=== PATIENT | female | born 1950 | race Caucasian/White ===

== ENCOUNTER 2019-12-29 15:09 | Emergency (ER) | payer MEDICARE ==
[2019-12-29 15:30] VITALS: TEMP 98.1
[2019-12-29] MEDS ORDERED: MORPHINE SULFATE 4 MG/ML SYRINGE IM STA (16:00)
--- NOTE | 2019-12-29 16:48 | CT ---
EXAMINATION TYPE: CT brain glenna wo con DATE OF EXAM: 12/29/2019 COMPARISON: None HISTORY: fall CT DLP: 1200 mGycm Automated exposure control for dose reduction was used. Multiple axial sections were obtained of the brain without contrast. Multiple axial sections were obt ained from the skull base to T1 vertebra without contrast. Findings There is cerebral cortical atrophy. There is no mass effect nor midline shift. There is no sign of in tracranial hemorrhage. The calvarium is intact. There is large left frontal scalp hematoma. This martita ures up to 1 cm in thickness. Skull base is intact. There is normal aeration of the temporal bones. Cervical vertebra have fairly n ormal spacing and alignment. Facet joints are intact. There is no significant arthritic disease. Ther e is small calcified posterior disc herniation at C4-5 C5-6. There is developmentally adequate spinal canal. I see no sign of cervical spinal stenosis. There is small posterior disc bulge at C3-4. IMPRESSION: Cerebral atrophy. No acute intracranial abnormality. Left frontal scalp hematoma. Mild posterior multilevel cervical disc bulging and herniation without significant spinal stenosis. N o fracture seen.
--- NOTE | 2019-12-29 16:51 | CT ---
EXAMINATION TYPE: CT facial bones wo con DATE OF EXAM: 12/29/2019 COMPARISON: None HISTORY: fall CT DLP: 1200 mGycm Automated exposure control for dose reduction was used. Multiple axial sections were obtained from the bottom of the mandible to the top of the frontal sinus es without contrast. FINDINGS: Mandibular ring is intact. Temporomandibular joints appear intact. Nasal bone appears intact. Zygomat ic arches appear normal. Maxilla is intact. There is no evidence of a blowout fracture. The orbital m argins are intact. There is no sign of retro-orbital mass. There is large left frontal scalp hematoma . This measures up to 10 mm in thickness. There is also left side periorbital soft tissue swelling an d hematoma. The frontal bone appears intact. Paranasal sinuses appear normally aerated. Sphenoid sinu se is hypoplastic. IMPRESSION: Large left frontal and periorbital soft tissue swelling and hematoma. No fracture seen.
--- NOTE | 2019-12-29 16:55 | CT ---
EXAMINATION TYPE: CT pelvis wo con DATE OF EXAM: 12/29/2019 COMPARISON: None HISTORY: fall, pain LT hip CT DLP: 462.7 mGycm Automated exposure control for dose reduction was used. Multiple axial sections were obtained from the iliac crests to the subtrochanteric femurs without con trast. FINDINGS: Sacroiliac joints are intact. The acetabula appear intact. Pelvic ring is intact. There is no sign of a pelvic fracture. The proximal femurs and hip joints appear intact. I see no evidence of hip fractu re. There is atherosclerotic vascular calcification. The coccyx appears intact. Bladder distends smoothly. There is no free fluid in the pelvis. There are sigmoid diverticula withou t evidence for diverticulitis. There is no sign of a pelvic mass. There is subcutaneous bruising late ral to the proximal left femur. IMPRESSION: No fracture seen. Minor degenerative spur formation at the hip joints. Subcutaneous bruising lateral to the proximal left femur. Sigmoid diverticulosis without diverticulitis.
--- NOTE | 2019-12-29 16:58 | XR ---
EXAMINATION TYPE: XR hand complete LT DATE OF EXAM: 12/29/2019 COMPARISON: NONE HISTORY: Pain after falling TECHNIQUE: 3 views FINDINGS: Metacarpals appear intact. I see no fracture nor dislocation. Joint spaces are fairly param l. There are no erosions. IMPRESSION: Negative left hand exam. No fracture seen.
--- NOTE | 2019-12-29 17:00 | XR ---
EXAMINATION TYPE: XR wrist complete LT DATE OF EXAM: 12/29/2019 COMPARISON: NONE HISTORY: Pain TECHNIQUE: 4 views FINDINGS: Carpal bones appear intact. I see no fracture nor dislocation. There is minor spurring at t he first carpometacarpal joint. IMPRESSION: No acute abnormality of the left wrist.
--- NOTE | 2019-12-29 17:02 | XR ---
EXAMINATION TYPE: XR Hip Complete LT DATE OF EXAM: 12/29/2019 COMPARISON: NONE HISTORY: Hip pain. Fall. TECHNIQUE: 2 views FINDINGS: I see no fracture nor dislocation. Proximal femur is intact. Hip joint space is fairly norm al. IMPRESSION: Negative left hip exam. No fracture seen.
--- NOTE | 2019-12-29 17:30 | ED ---
Fall HPI - General Chief Complaint: Fall Stated Complaint: Fall- Head Injury Time Seen by Provider: 12/29/19 15:30 Source: patient Mode of arrival: ambulatory - History of Present Illness Initial Comments: The patient is a 69-year-old female past history of asthma, hypertension, hyperlipidemia and stent placement right lower extremity presents emergency department after she had a syncopal episode at home. Reports that she was walking in the backyard when she fell forward and hit her head off the concrete. States that her head bounced twice off the concrete. She sustained a loss of consciousness for several minutes. Her found her and assisted her to her feet. She was able to walk into the house. Injury happened around 10:30 AM. She sustained a large abrasion over her left eyelid. Patient now has periorbital swelling with decreased vision out of her left eye. Patient also reports to left fifth digit pain and left knee pain. The patient is on Plavix a nd cilostazol. She denies having any chest pain or shortness of breath prior to the incident. Denies a mechanical fall but believes she went to the ground from passing out. Denies any abdominal pain. No back or neck pain. No other alleviating, precipitating or modifying factors - Related Data Allergies Allergy/AdvReac Type Severity Reaction Status Date / Time Sulfa (Sulfonamide Allergy Swelling Verified 12/29/19 15:30 Antibiotics) Review of Systems ROS Statement: Those systems with pertinent positive or pertinent negative responses have been documented in the HPI. ROS Other: All systems not noted in ROS Statement are negative. Past Medical History Past Medical History: Asthma, Hyperlipidemia, Hypertension History of Any Multi-Drug Resistant Organisms: None Reported Past Surgical History: Heart Catheterization With Stent Additional Past Surgical History / Comment(s): gastric sleeve, arm and stomach plastic surgery Past Psychological History: No Psychological Hx Reported Smoking Status: Former smoker Past Alcohol Use History: None Reported Past Drug Use History: None Reported General Exam Limitations: no limitations General appearance: alert, in no apparent distress Head exam: Present: normocephalic, other (hematoma and ecchymosis over left eye - 3.5 x 3.5 cm) Eye exam: Present: PERRL, EOMI, periorbital swelling, other (significant periorbital edema left eye. Eye is opened manually and EOMI. No hyphema. No corneal abrasion. No signs of entrapment. Globe is round. Pupils reactive bilaterally. No palpable step off around the eye) ENT exam: Present: normal exam, mucous membranes moist, other (no nasal bone tenderness. No septal hematoma) Neck exam: Present: normal inspection. Absent: tenderness, meningismus, lymphadenopathy Respiratory exam: Present: normal lung sounds bilaterally. Absent: respiratory distress, wheezes, rales, rhonchi, stridor Cardiovascular Exam: Present: regular rate, normal rhythm, normal heart sounds. Absent: systolic murmur, diastolic murmur, rubs, gallop, clicks GI/Abdominal exam: Present: soft, normal bowel sounds. Absent: distended, tenderness, guarding, rebound, rigid Extremities exam: Present: normal inspection, full ROM, tenderness (tendernes DIP left 5th digit. No ecchymosis intact ROM. Tenderness to palpation left lateral thigh with palpable hematoma. Patient able to flex at hip, extend/flex knee without pain. No obvious deformity. 2+ pulses all 4 extremities. Compartments are soft. Intact distal sensation. ), normal capillary refill. Absent: pedal edema, joint swelling, calf tenderness Back exam: Present: normal inspection Neurological exam: Present: alert, oriented X3, CN II-XII intact Psychiatric exam: Present: normal affect, normal mood Course Vital Signs 12/29/19 12/29/19 12/29/19 15:27 17:18 18:53 Temperature 98.1 F Pulse Rate 94 74 71 Respiratory 18 18 16 Rate Blood Pressure 109/70 107/61 105/71 O2 Sat by Pulse 95 94 L 96 Oximetry Medical Decision Making - Medical Decision Making Upon arrival the patient is placed into room 5. A thorough history and physical exam was performed. I am able to open the patient's left eye. No signs of ocular entrapment. No hyphema. Patient has intact visual pate. She is sent for CT of her head, neck, facial bones and orbits. Patient also has a CT of her pelvis performed because of her left hip and pelvic pain. Multiple x-rays were performed. Upon review of the results, CT the patient's head demonstrates cerebral atrophy with no acute intracranial abnormality. Left frontal scalp hematoma. Mild posterior multilevel cervical disc bulging herniation without significant spinal stenosis. No fracture seen. Face CT demonstrates large left frontal and periorbital soft tissue swelling and hematoma. No fracture seen. CT pelvis demonstrates no fracture with minor degenerative spur formation at the hip joints. Subcutaneous bruising lateral to the proximal left femur. Hand x- ray demonstrates no acute fractures. Patient has no pain over the scaphoid region. X-ray of the wrist demonstrates no acute abnormality. Hip x-ray demonstrates no fracture. I did discuss results with the patient. She is able to get up and ambulate. Patient's eye is reevaluated and swelling has decreased. Patient is able to open her eye on her own. Extraocular muscles continue to be intact. At this time patient will be discharged home. She is offered something for pain control however patient refused. Patient needs to follow-up with her primary care physician and rn charge within 2-4 days. Return to the emergency room for any new or worsening symptoms. Patient was in agreement treatment plan she was discharged home in stable condition - Lab Data Result diagrams: 12/29/19 17:18 12/29/19 17:18 Lab Results 12/29/19 12/29/19 12/29/19 Range/Units 17:18 17:18 17:18 WBC 11.3 H (3.8-10.6) k/uL RBC 4.24 (3.80-5.40) m/uL Hgb 12.8 (11.4-16.0) gm/dL Hct 39.6 (34.0-46.0) % MCV 93.4 (80.0-100.0) fL MCH 30.2 (25.0-35.0) pg MCHC 32.3 (31.0-37.0) g/dL RDW 13.5 (11.5-15.5) % Plt Count 319 (150-450) k/uL Neutrophils % 83 % Lymphocytes % 10 % Monocytes % 4 % Eosinophils % 1 % Basophils % 0 % Neutrophils # 9.4 H (1.3-7.7) k/uL Lymphocytes # 1.1 (1.0-4.8) k/uL Monocytes # 0.5 (0-1.0) k/uL Eosinophils # 0.1 (0-0.7) k/uL Basophils # 0.0 (0-0.2) k/uL PT 10.2 (9.0-12.0) sec INR 1.0 (<1.2) APTT 20.7 L (22.0-30.0) sec Sodium 134 L (137-145) mmol/L Potassium 4.6 (3.5-5.1) mmol/L Chloride 96 L (98-107) mmol/L Carbon Dioxide 30 (22-30) mmol/L Anion Gap 8 mmol/L BUN 26 H (7-17) mg/dL Creatinine 0.87 (0.52-1.04) mg/dL Est GFR (CKD-EPI)AfAm 80 (>60 ml/min/1.73 sqM) Est GFR (CKD-EPI)NonAf 69 (>60 ml/min/1.73 sqM) Glucose 326 H (74-99) mg/dL Calcium 9.9 (8.4-10.2) mg/dL Total Bilirubin 0.8 (0.2-1.3) mg/dL AST 27 (14-36) U/L ALT 17 (4-34) U/L Alkaline Phosphatase 88 (38-126) U/L Creatine Kinase 50 (30-135) U/L Troponin I (0.000-0.034) ng/mL Total Protein 7.2 (6.3-8.2) g/dL Albumin 4.2 (3.5-5.0) g/dL 12/29/19 Range/Units 17:18 WBC (3.8-10.6) k/uL RBC (3.80-5.40) m/uL Hgb (11.4-16.0) gm/dL Hct (34.0-46.0) % MCV (80.0-100.0) fL MCH (25.0-35.0) pg MCHC (31.0-37.0) g/dL RDW (11.5-15.5) % Plt Count (150-450) k/uL Neutrophils % % Lymphocytes % % Monocytes % % Eosinophils % % Basophils % % Neutrophils # (1.3-7.7) k/uL Lymphocytes # (1.0-4.8) k/uL Monocytes # (0-1.0) k/uL Eosinophils # (0-0.7) k/uL Basophils # (0-0.2) k/uL PT (9.0-12.0) sec INR (<1.2) APTT (22.0-30.0) sec Sodium (137-145) mmol/L Potassium (3.5-5.1) mmol/L Chloride (98-107) mmol/L Carbon Dioxide (22-30) mmol/L Anion Gap mmol/L BUN (7-17) mg/dL Creatinine (0.52-1.04) mg/dL Est GFR (CKD-EPI)AfAm (>60 ml/min/1.73 sqM) Est GFR (CKD-EPI)NonAf (>60 ml/min/1.73 sqM) Glucose (74-99) mg/dL Calcium (8.4-10.2) mg/dL Total Bilirubin (0.2-1.3) mg/dL AST (14-36) U/L ALT (4-34) U/L Alkaline Phosphatase (38-126) U/L Creatine Kinase (30-135) U/L Troponin I <0.012 (0.000-0.034) ng/mL Total Protein (6.3-8.2) g/dL Albumin (3.5-5.0) g/dL - EKG Data EKG Comments: EKG demonstrates a normal sinus rhythm with a ventricular rate of 70. KS interval 166. QRS 136. QTC of 492. Right bundle branch block present. No acute ST segment elevations. Disposition Clinical Impression: Syncope, Fall, Blunt head trauma, Scalp hematoma Disposition: HOME SELF-CARE Condition: Stable Instructions (If sedation given, give patient instructions): Syncope (ED), Concussion (ED) Additional Instructions: You need to follow up with your primary care doctor in 2-4 days. They need to recheck her sugars as they were high here in the emergency room. I also recommend he follow-up with your eye doctor. Return to the emergency room for any new or worsening symptoms Is patient prescribed a controlled substance at d/c from ED?: No Referrals: Daryl Briceno MD [Primary Care Provider] - 1-2 days Time of Disposition: 18:31
[2019-12-29 17:31] LABS: Basophils % (A) 0 %; Eosinophils # (A) 0.1 k/uL (0-0.7); Eosinophils % (A) 1 %; HCT 39.6 % (34.0-46.0); HGB 12.8 gm/dL (11.4-16.0); Lymphocytes # (A) 1.1 k/uL (1.0-4.8); Lymphocytes % (A) 10 %; MCH 30.2 pg (25.0-35.0); MCHC 32.3 g/dL (31.0-37.0); MCV 93.4 fL (80.0-100.0); Mean Platelet Volume 7.1; Monocytes # (A) 0.5 k/uL (0-1.0); Monocytes % (A) 4 %; Neutrophils # (A) 9.4 k/uL (1.3-7.7); Neutrophils % (A) 83 %; Platelet Count 319 k/uL (150-450); RBC 4.24 m/uL (3.80-5.40); RDW 13.5 % (11.5-15.5); WBC 11.3 k/uL (3.8-10.6)
[2019-12-29 17:42] LABS: Albumin 4.2 g/dL (3.5-5.0); Calcium 9.9 mg/dL (8.4-10.2); Potassium 4.6 mmol/L (3.5-5.1); Total Bilirubin 0.8 mg/dL (0.2-1.3); Total Protein 7.2 g/dL (6.3-8.2)
[2019-12-29 17:46] LABS: Prothrombin Time 10.2 sec (9.0-12.0)
[2019-12-29 17:47] LABS: Partial Thromboplastin Time 20.7 sec (22.0-30.0)
[2019-12-29 18:55] VITALS: BP 105/71; PULSE 71; RESP 16
== END 2019-12-29 18:54 | disposition home or self-care (01) ==
LOC: EC 15:09
DX: S00.03XA Contusion of scalp, initial encounter (principal); S70.12XA Contusion of left thigh, initial encounter; S06.899A Other specified intracranial injury with loss of consciousness of unspecified duration, initial encounter; G31.9 Degenerative disease of nervous system, unspecified; M50.221 Other cervical disc displacement at C4-C5 level; M79.89 Other specified soft tissue disorders; R10.2 Pelvic and perineal pain; Z79.02 Long term (current) use of antithrombotics/antiplatelets; Z87.891 Personal history of nicotine dependence; Z88.2 Allergy status to sulfonamides; Z95.5 Presence of coronary angioplasty implant and graft; W18.30XA Fall on same level, unspecified, initial encounter; Y93.01 Activity, walking, marching and hiking; Y92.096 Garden or yard of other non-institutional residence as the place of occurrence of the external cause
CPT/HCPCS: 96372; 99284; 36415; 93005; 80053; 82550; 84484; 85025; 85610; 85730; 73502; 73110; 73130; 72192; 72125; 70486; 70450; J2270

== ENCOUNTER 2021-05-04 15:43 | Emergency (ER) | payer MEDICARE ==
[2021-05-04 17:14] VITALS: RESP 20
--- NOTE | 2021-05-04 18:39 | XR ---
EXAMINATION TYPE: XR chest 2V DATE OF EXAM: 05/04/2021 COMPARISON: NONE HISTORY: Weakness. Cough TECHNIQUE: 2 views FINDINGS: There is some coarsening of interstitial markings. Thoracic aorta is atheromatous. Heart si ze is normal. Bony thorax is intact. There is no pleural effusion. IMPRESSION: Interstitial patchy pneumonia. Subsegmental atelectasis at the lung bases.
[2021-05-04] MEDS ORDERED: ACETAMINOPHEN TAB 325 MG TAB PO STA (19:20)
[2021-05-04] MEDS ORDERED: IBUPROFEN 600 MG TAB PO STA (19:20)
[2021-05-04] MEDS ORDERED: DEXAMETHASONE SOD PHOSPHATE 10 MG/ML 1 ML VIAL IVP STA (19:27)
[2021-05-04] MEDS ORDERED: SODIUM CHLORIDE 0.9% 50 ML IVPB ONE (19:45)
[2021-05-04] MEDS ORDERED: BAMLANIVIMAB (EUA) 700 MG, ETESEVIMAB (EUA) 1,400 MG in SODIUM CHLORIDE 0.9% 50 ML IVPB ONE (19:45)
--- NOTE | 2021-05-04 20:31 | ED ---
URI HPI - General Chief Complaint: Upper Respiratory Infection Stated Complaint: Cough Time Seen by Provider: 05/04/21 18:57 Source: patient, RN notes reviewed Mode of arrival: ambulatory Limitations: no limitations - History of Present Illness Initial Comments: Patient is a 70-year-old female that presents to the emergency Department complaining of cough, shortness of breath and fever. Patient wants to be tested for Covid. She notes that she is positive she wants to undergo monoclonal antibody infusion. Patient was otherwise well-appearing. She denied any chest pain headache nausea vomiting diarrhea constipation fever fatigue chills. - Related Data Previous Rx's Medication Instructions Recorded predniSONE 50 mg PO DAILY #5 tab 05/04/21 Allergies Allergy/AdvReac Type Severity Reaction Status Date / Time Sulfa (Sulfonamide Allergy Swelling Verified 05/04/21 17:14 Antibiotics) Review of Systems ROS Statement: Those systems with pertinent positive or pertinent negative responses have been documented in the HPI. ROS Other: All systems not noted in ROS Statement are negative. Past Medical History Past Medical History: Asthma, Hyperlipidemia, Hypertension History of Any Multi-Drug Resistant Organisms: None Reported Past Surgical History: Heart Catheterization With Stent Additional Past Surgical History / Comment(s): gastric sleeve, arm and stomach plastic surgery Past Psychological History: No Psychological Hx Reported Smoking Status: Former smoker Past Alcohol Use History: None Reported Past Drug Use History: None Reported General Exam Limitations: no limitations General appearance: alert, in no apparent distress, obese Head exam: Present: atraumatic, normocephalic, normal inspection Eye exam: Present: normal appearance, PERRL, EOMI. Absent: scleral icterus, conjunctival injection, periorbital swelling ENT exam: Present: normal exam, mucous membranes moist Neck exam: Present: normal inspection Respiratory exam: Present: normal lung sounds bilaterally. Absent: respiratory distress, wheezes, rales, rhonchi, stridor Cardiovascular Exam: Present: regular rate, normal rhythm, normal heart sounds. Absent: systolic murmur, diastolic murmur, rubs, gallop, clicks Extremities exam: Present: normal inspection, full ROM, normal capillary refill. Absent: tenderness, pedal edema, joint swelling, calf tenderness Neurological exam: Present: alert, oriented X3 Psychiatric exam: Present: normal affect, normal mood Skin exam: Present: warm, dry, intact, normal color. Absent: rash Course Vital Signs 05/04/21 17:11 Temperature 102.7 F H Pulse Rate 111 H Respiratory 20 Rate Blood Pressure 132/78 O2 Sat by Pulse 93 L Oximetry Medical Decision Making - Medical Decision Making 70-year-old female with Covid like symptoms for the past several days. Covid test, 650 mg of Tylenol, 600 mg of Motrin, 10 mg of Decadron ordered. Covid test positive. Patient does meet criteria for monoclonal antibodies and does wish to undergo infusion. Chest x-ray ordered. Patient is agreeable with discharge home after infusion. Case discussed with Dr. King - Lab Data Lab Results 05/04/21 Range/Units 17:16 Coronavirus (PCR) Detected A (Not Detectd) - Radiology Data Radiology results: report reviewed, image reviewed Chest x-ray: Interstitial patchy pneumonia. Subsegmental atelectasis at the lung bases. Disposition Clinical Impression: COVID Disposition: HOME SELF-CARE Condition: Stable Instructions (If sedation given, give patient instructions): Coronavirus Disease 2019 (COVID-19) Additional Instructions: Please return to the Emergency Department if symptoms worsen or any other concerns. Prednisone sent to pharmacy. Is patient prescribed a controlled substance at d/c from ED?: No Referrals: Daryl Briceno MD [Primary Care Provider] - 1-2 days Time of Disposition: 20:31
[2021-05-04 22:06] VITALS: BP 128/80; PULSE 82; TEMP 98.5
== END 2021-05-04 22:06 | disposition home or self-care (01) ==
LOC: EC 15:43
DX: U07.1 COVID-19 (principal); I10 Essential (primary) hypertension; E78.5 Hyperlipidemia, unspecified; J45.909 Unspecified asthma, uncomplicated; Z88.2 Allergy status to sulfonamides; Z87.891 Personal history of nicotine dependence
CPT/HCPCS: 99285; 96365; 96375; 87635; 71046; J1100; J3490

== ENCOUNTER 2022-04-11 12:59 | Emergency (ER) | payer MEDICARE ==
[2022-04-11] MEDS ORDERED: HYDROmorphone 0.5 MG/0.5 ML SYRINGE IVP STA (13:35)
--- NOTE | 2022-04-11 13:41 | ED ---
Fall HPI - General Chief Complaint: Fall Stated Complaint: fall, shoulder injury Time Seen by Provider: 04/11/22 13:02 Source: patient, EMS, RN notes reviewed Mode of arrival: EMS - History of Present Illness Initial Comments: Patient is a 71 year old female presenting to the ER vis EMS after falling in her driveway. She was taking out the trash and fell landing on her back. She reports right shoulder pain rating it a 10/10. She admits to numbness in her right arm and fingers. She states she hit her head but denies losing consciousness. She also is having pain in her buttock where she landed. The patient is currently on Plavix. - Related Data Previous Rx's Medication Instructions Recorded predniSONE 50 mg PO DAILY #5 tab 05/04/21 HYDROcodone/APAP 5-325MG [[facility] 5] 1 each PO Q6HR PRN #12 tab 04/11/22 Allergies Allergy/AdvReac Type Severity Reaction Status Date / Time Sulfa (Sulfonamide Allergy Swelling Verified 04/11/22 13:07 Antibiotics) Review of Systems ROS Statement: Those systems with pertinent positive or pertinent negative responses have been documented in the HPI. ROS Other: All systems not noted in ROS Statement are negative. Past Medical History Past Medical History: Asthma, Hyperlipidemia, Hypertension History of Any Multi-Drug Resistant Organisms: None Reported Past Surgical History: Heart Catheterization With Stent Additional Past Surgical History / Comment(s): gastric sleeve, arm and stomach plastic surgery Past Psychological History: No Psychological Hx Reported Smoking Status: Former smoker Past Alcohol Use History: None Reported Past Drug Use History: None Reported General Exam Limitations: no limitations Course Vital Signs 04/11/22 04/11/22 04/11/22 13:00 13:09 13:12 Temperature 98.4 F 98.4 F Pulse Rate 71 66 Respiratory 22 20 Rate Blood Pressure 125/76 131/75 O2 Sat by Pulse 82 L 95 96 Oximetry 04/11/22 04/11/22 13:17 13:23 Temperature Pulse Rate 65 Respiratory 18 Rate Blood Pressure 145/71 O2 Sat by Pulse 97 96 Oximetry Medical Decision Making - Medical Decision Making X-ray shows displaced proximal humerus fracture. I discussed the case with on- call orthopedics recommends patient be placed in a sling, pain control follow-up in office. There is no emergent surgical intervention needed. CT of the brain and C-spine did not reveal any acute findings. Patient will be discharged in stable condition with close follow-up. Disposition Clinical Impression: Fall, Closed fracture of right proximal humerus Disposition: HOME SELF-CARE Condition: Stable Instructions (If sedation given, give patient instructions): Proximal Humerus Fracture (ED) Additional Instructions: Please return to the Emergency Department if symptoms worsen or any other concerns. Prescriptions: HYDROcodone/APAP 5-325MG [[facility] 5] 1 each PO Q6HR PRN #12 tab PRN Reason: Pain Is patient prescribed a controlled substance at d/c from ED?: Yes When asked, does pt state using other controlled substances?: No If prescribed controlled substance>3 days was MAPS reviewed?: Prescribed <3 Days If opioid is for acute pain is fill amount 7 days or less?: Yes If Rx opioid, was Start Talking consent form obtained?: Yes Referrals: Daryl Briceno MD [Primary Care Provider] - 1-2 days Mark Bowen MD [STAFF PHYSICIAN] - 1-2 days Time of Disposition: 15:07
--- NOTE | 2022-04-11 15:17 | XR ---
EXAMINATION TYPE: XR shoulder complete RT DATE OF EXAM: 04/11/2022 COMPARISON: NONE HISTORY: Pain TECHNIQUE: Three views are submitted. FINDINGS: There is a displaced right humeral neck fracture. Diffuse osteopenia. Remaining osseous structures in tact. IMPRESSION: 1. Significantly displaced right humeral neck fracture.
--- NOTE | 2022-04-11 15:34 | CT ---
EXAMINATION TYPE: CT brain cspine wo con DATE OF EXAM: 04/11/2022 COMPARISON: Prior trauma CT December 29, 2019 HISTORY: Fall injury with headache and neck pain CT DLP: 2039.3 mGycm. Automated Exposure Control for Dose Reduction was Utilized. TECHNIQUE: CT scan of the head and cervical spine are performed without contrast. FINDINGS: There is no acute intracranial hemorrhage or midline shift identified. Mild to moderate v entricular and sulcal prominence is redemonstrated. Increased sulcal prominence over the bilateral f rontal lobes redemonstrated similar to prior. Luque-white matter differentiation fairly well maintaine d. The calvarium is intact. Persistent anterior metopic suture redemonstrated. The globes are intact and the visualized sinuses are clear. Cervical spine is visualized in its entirety from C1 through upper thoracic levels and demonstrates s atisfactory alignment without evidence of acute fracture or dislocation. Prevertebral soft tissue ap pears within normal limits. The C1-C2 articulation is within normal limits on the coronal images. Ve rtebral body heights and disc space heights are maintained. Spinal canal is preserved. Review of axia l images shows thyroid gland to appear within normal limits. Lung apices show emphysematous change wi thout pneumothorax. Moderate calcified plaque bilateral carotid bulb level is redemonstrated. IMPRESSION: 1. There is no acute fracture or dislocation evident in the cervical spine. 2. No acute intracranial hemorrhage or midline shift is seen. No significant change from prior CT.
[2022-04-11 16:02] VITALS: BP 116/73; PULSE 67; RESP 20; TEMP 97.8
== END 2022-04-11 16:03 | disposition home or self-care (01) ==
LOC: EC 12:59
DX: S42.301A Unspecified fracture of shaft of humerus, right arm, initial encounter for closed fracture (principal); J45.909 Unspecified asthma, uncomplicated; E78.5 Hyperlipidemia, unspecified; I10 Essential (primary) hypertension; Z88.2 Allergy status to sulfonamides; Z79.52 Long term (current) use of systemic steroids; Z87.891 Personal history of nicotine dependence; W19.XXXA Unspecified fall, initial encounter
CPT/HCPCS: 99284; 96374; 73030; 72125; 70450; J1170

== ENCOUNTER 2023-09-02 17:31 | Emergency (ER) | payer MEDICARE ==
[2023-09-02 17:37] LABS: Glucose,Whole Blood 394 mg/dL (70-110)
--- NOTE | 2023-09-02 17:38 | ED ---
General Adult HPI - General Stated complaint: High Sugars Time Seen by Provider: 09/02/23 17:37 - History of Present Illness Initial comments: 73-year-old female presenting to the ED with a chief complaint of confusion. Her has been more tired than usual and while at home noted high blood sugar in the 400s. States patient has been more confused than usual as well today. reports that he has had difficulties getting her attention. Spoke to the patient's daughter at bedside. She reports that patient may be starting to have some dementia and normally has some problems with confusion however when her sugar was high earlier states that the patient was not responding to questioning. Did not notice any facial droop or problems with weakness at this time. She states right now she is currently back to baseline. - Related Data Previous Rx's Medication Instructions Recorded predniSONE 50 mg PO DAILY #5 tab 05/04/21 HYDROcodone/APAP 5-325MG [[place] 5] 1 each PO Q6HR PRN #12 tab 04/11/22 Allergies Allergy/AdvReac Type Severity Reaction Status Date / Time Sulfa (Sulfonamide Allergy Swelling Verified 04/11/22 13:07 Antibiotics) Review of Systems ROS Statement: Those systems with pertinent positive or pertinent negative responses have been documented in the HPI. ROS Other: All systems not noted in ROS Statement are negative. Past Medical History Past Medical History: Asthma, Hyperlipidemia, Hypertension History of Any Multi-Drug Resistant Organisms: None Reported Past Surgical History: Heart Catheterization With Stent Additional Past Surgical History / Comment(s): gastric sleeve, arm and stomach plastic surgery Past Psychological History: No Psychological Hx Reported Smoking Status: Former smoker Past Alcohol Use History: None Reported Past Drug Use History: None Reported General Exam - General Exam Comments Initial Comments: Visual Physical Exam Vital signs reviewed General: Well-appearing Head: Normocephalic, atraumatic Eyes: PERRLA, EOMI ENT: Airway patent Chest: Nonlabored breathing Skin: No visual rash, normal skin tone Neuro: Alert. Difficulty responding to commands. Pupils equal round reactive to light. Does not follow commands to assess extraocular motions. Symmetric smile, tongue midline, uvula midline, shrug shoulders with no difficulty, no pronator drift. Musculoskeletal: No gross abnormalities General appearance: alert, in no apparent distress Eye exam: Present: PERRL, EOMI ENT exam: Present: mucous membranes moist Neck exam: Present: normal inspection Respiratory exam: Present: normal lung sounds bilaterally Cardiovascular Exam: Present: regular rate GI/Abdominal exam: Present: soft, normal bowel sounds. Absent: distended, tenderness, guarding, rebound, rigid Neurological exam: Present: alert, CN II-XII intact (Intact [id number], yo l-to-harvey, rapid alternating hand movements.) Skin exam: Present: warm, dry Course Vital Signs 09/02/23 17:36 Temperature 98.4 F Pulse Rate 67 Respiratory 16 Rate Blood Pressure 193/74 O2 Sat by Pulse 93 L Oximetry Medical Decision Making - Medical Decision Making Quicknote portion performed. Signed Alfonso Whitaker PA-C Was pt. sent in by a medical professional or institution ([facility], [employer], urgent care, hospital, or prison...) When possible be specific @ -No Did you speak to anyone other than the patient for history (EMS, parent, family, police, friend...)? What history was obtained from this source @ -Spoke to both the patient's and her daughter for history. For further details please see HPI. Did you review nursing and triage notes (agree or disagree)? Why? @ -I reviewed and agree with nursing and triage notes Were old charts reviewed (outside hosp., previous admission, EMS record, old EKG, old radiological studies, urgent care reports/EKG's, prison records)? Report findings @ -No old charts were reviewed Differential Diagnosis (chest pain, altered mental status, abdominal pain women, abdominal pain men, vaginal bleeding, weakness, fever, dyspnea, syncope, headache, dizziness, GI bleed, back pain, seizure, CVA, palpatations, mental health, musculoskeletal)? @ -Differential Altered Mental Status: Hypoglycemia, DKA, hypercapnia, ETOH, overdose, CO poisoning, trauma, myxedema coma, HTN encephalopathy, infection, encephalitis, psychosis, intercranial hemorrhage, hepatic encephalopathy, meningitis, CVA, this is not meant to be an all-inclusive list EKG interpreted by me (3pts min.). @ -EKG interpreted by me which shows a sinus bradycardia with first-degree AV block with a CA interval of 240 ms and a right bundle branch block with a rate of 55 bpm. QRS 154, QT/QTc 468/456. This appears similar to prior. X-rays interpreted by me (1pt min.). @ -None done CT interpreted by me (1pt min.). @ -CT brain and CTA head and neck interpreted by me which revealed no evidence of acute finding. U/S interpreted by me (1pt. min.). @ -None done What testing was considered but not performed or refused? (CT, X-rays, U/S, labs)? Why? @ -None What meds were considered but not given or refused? Why? @ -None Did you discuss the management of the patient with other professionals (professionals i.e. , PA, [employer], lab, RT, psych nurse, social media senior associate, commercial photographer, teacher, forest fire management officer, family service caseworker)? Give summary @ -No Was smoking cessation discussed for >3mins.? @ -No Was critical care preformed (if so, how long)? @ -No Were there social determinants of health that impacted care today? How? (Homelessness, low income, unemployed, alcoholism, drug addiction, transportation, low edu. Level, literacy, decrease access to med. care, shelter, rehab)? @ -No Was there de-escalation of care discussed even if they declined (Discuss DNR or withdrawal of care, Hospice)? DNR status @ -No What co-morbidities impacted this encounter? (DM, HTN, Smoking, COPD, CAD, Cancer, CVA, ARF, Chemo, Hep., AIDS, mental health diagnosis, sleep apnea, morbid obesity)? @ -None Was patient admitted / discharged? Hospital course, mention meds given and route, prescriptions, significant lab abnormalities, going to OR and other pertinent info. @ -Discharge 73-year-old female presenting to the ED with episode of confusion. Per family presumptive diagnosis of dementia however no formal diagnosis. States today she was more confused than usual and was taking longer to respond prompting presentation to the ED for further evaluation. At this time did not notice any facial paralysis or any problems with weakness. States that the patient was following commands. At this time daughter states that she is back to her normal self. Laboratory studies reviewed. CBC largely unremarkable. Is significant for an elevated blood sugar at 394 which she was provided insulin for. Lactic acid elevated 2.1. Acetone negative. CT brain and CT head and neck revealed no evidence of acute process. At this time patient is back to baseline and neurologic exam showed no focal deficits. Discharged home in stable condition advised follow-up with PCP. Discussed strict return precautions with patient's daughter who verbalized agreement. Undiagnosed new problem with uncertain prognosis? @ -No Drug Therapy requiring intensive monitoring for toxicity (Heparin, Nitro, Insulin, Cardizem)? @ -No Were any procedures done? @ -No Diagnosis/symptom? @ -Hyperglycemia, altered mental status now resolved Acute, or Chronic, or Acute on Chronic? @ -Acute Uncomplicated (without systemic symptoms) or Complicated (systemic symptoms)? @ -Uncomplicated Side effects of treatment? @ -No Exacerbation, Progression, or Severe Exacerbation? @ -No Poses a threat to life or bodily function? How? (Chest pain, USA, ID, pneumonia, PE, COPD, DKA, ARF, appy, cholecystitis, CVA, Diverticulitis, Homicidal, Suicidal, threat to staff... and all critical care pts) @ -No - Lab Data Result diagrams: 09/02/23 17:38 09/02/23 17:38 Lab Results 09/02/23 09/02/23 09/02/23 Range/Units 17:35 17:38 17:38 WBC 11.0 H (3.8-10.6) k/uL RBC 4.68 (3.80-5.40) m/uL Hgb 14.4 (11.4-16.0) gm/dL Hct 46.7 H (34.0-46.0) % MCV 99.6 (80.0-100.0) fL MCH 30.8 (25.0-35.0) pg MCHC 30.9 L (31.0-37.0) g/dL RDW 13.9 (11.5-15.5) % Plt Count 368 (150-450) k/uL MPV 7.3 Neutrophils % 72 % Lymphocytes % 19 % Monocytes % 5 % Eosinophils % 3 % Basophils % 1 % Neutrophils # 8.0 H (1.3-7.7) k/uL Lymphocytes # 2.1 (1.0-4.8) k/uL Monocytes # 0.5 (0-1.0) k/uL Eosinophils # 0.3 (0-0.7) k/uL Basophils # 0.1 (0-0.2) k/uL Hypochromasia Slight PT 10.8 (10.0-12.5) sec INR 1.0 (<1.2) APTT 21.7 L (22.0-30.0) sec Sodium (137-145) mmol/L Potassium (3.5-5.1) mmol/L Chloride (98-107) mmol/L Carbon Dioxide (22-30) mmol/L Anion Gap mmol/L BUN (7-17) mg/dL Creatinine (0.52-1.04) mg/dL Est GFR (CKD-EPI)AfAm (>60 ml/min/1.73 sqM) Est GFR (CKD-EPI)NonAf (>60 ml/min/1.73 sqM) Glucose (74-99) mg/dL POC Glucose (mg/dL) 394 H (70-110) mg/dL POC Glu [employer] ID Manuel Webb Lactic Ac Sepsis Rflx Plasma Lactic Acid Ko (0.7-2.0) mmol/L Calcium (8.4-10.2) mg/dL Total Bilirubin (0.2-1.3) mg/dL AST (14-36) U/L ALT (4-34) U/L Alkaline Phosphatase (38-126) U/L Troponin I (0.000-0.034) ng/mL Total Protein (6.3-8.2) g/dL Albumin (3.5-5.0) g/dL Acetone, Qual (Negative) 09/02/23 09/02/23 09/02/23 Range/Units 17:38 17:38 17:38 WBC (3.8-10.6) k/uL RBC (3.80-5.40) m/uL Hgb (11.4-16.0) gm/dL Hct (34.0-46.0) % MCV (80.0-100.0) fL MCH (25.0-35.0) pg MCHC (31.0-37.0) g/dL RDW (11.5-15.5) % Plt Count (150-450) k/uL MPV Neutrophils % % Lymphocytes % % Monocytes % % Eosinophils % % Basophils % % Neutrophils # (1.3-7.7) k/uL Lymphocytes # (1.0-4.8) k/uL Monocytes # (0-1.0) k/uL Eosinophils # (0-0.7) k/uL Basophils # (0-0.2) k/uL Hypochromasia PT (10.0-12.5) sec INR (<1.2) APTT (22.0-30.0) sec Sodium 138 (137-145) mmol/L Potassium 4.3 (3.5-5.1) mmol/L Chloride 101 (98-107) mmol/L Carbon Dioxide 28 (22-30) mmol/L Anion Gap 9 mmol/L BUN 26 H (7-17) mg/dL Creatinine 1.00 (0.52-1.04) mg/dL Est GFR (CKD-EPI)AfAm 66 (>60 ml/min/1.73 sqM) Est GFR (CKD-EPI)NonAf 57 (>60 ml/min/1.73 sqM) Glucose 392 H (74-99) mg/dL POC Glucose (mg/dL) (70-110) mg/dL POC Glu [employer] ID Lactic Ac Sepsis Rflx Plasma Lactic Acid Ko 2.1 H* (0.7-2.0) mmol/L Calcium 9.7 (8.4-10.2) mg/dL Total Bilirubin 0.6 (0.2-1.3) mg/dL AST 30 (14-36) U/L ALT 20 (4-34) U/L Alkaline Phosphatase 116 (38-126) U/L Troponin I <0.012 (0.000-0.034) ng/mL Total Protein 7.2 (6.3-8.2) g/dL Albumin 3.8 (3.5-5.0) g/dL Acetone, Qual Negative (Negative) 09/02/23 09/02/23 09/02/23 Range/Units 18:38 20:12 21:06 WBC (3.8-10.6) k/uL RBC (3.80-5.40) m/uL Hgb (11.4-16.0) gm/dL Hct (34.0-46.0) % MCV (80.0-100.0) fL MCH (25.0-35.0) pg MCHC (31.0-37.0) g/dL RDW (11.5-15.5) % Plt Count (150-450) k/uL MPV Neutrophils % % Lymphocytes % % Monocytes % % Eosinophils % % Basophils % % Neutrophils # (1.3-7.7) k/uL Lymphocytes # (1.0-4.8) k/uL Monocytes # (0-1.0) k/uL Eosinophils # (0-0.7) k/uL Basophils # (0-0.2) k/uL Hypochromasia PT (10.0-12.5) sec INR (<1.2) APTT (22.0-30.0) sec Sodium (137-145) mmol/L Potassium (3.5-5.1) mmol/L Chloride (98-107) mmol/L Carbon Dioxide (22-30) mmol/L Anion Gap mmol/L BUN (7-17) mg/dL Creatinine (0.52-1.04) mg/dL Est GFR (CKD-EPI)AfAm (>60 ml/min/1.73 sqM) Est GFR (CKD-EPI)NonAf (>60 ml/min/1.73 sqM) Glucose (74-99) mg/dL POC Glucose (mg/dL) 314 H 275 H (70-110) mg/dL POC Glu [employer] KAMRYN Clemnete, Vanna Clemente, Vanna Lactic Ac Sepsis Rflx Y Plasma Lactic Acid Ko (0.7-2.0) mmol/L Calcium (8.4-10.2) mg/dL Total Bilirubin (0.2-1.3) mg/dL AST (14-36) U/L ALT (4-34) U/L Alkaline Phosphatase (38-126) U/L Troponin I (0.000-0.034) ng/mL Total Protein (6.3-8.2) g/dL Albumin (3.5-5.0) g/dL Acetone, Qual (Negative) Disposition Clinical Impression: Hyperglycemia, Altered mental status Disposition: HOME SELF-CARE Condition: Good Additional Instructions: Please return to the Emergency Department if symptoms worsen or any other concerns. Please follow-up with your primary care provider. Is patient prescribed a controlled substance at d/c from ED?: No Referrals: Daryl Briceno MD [Primary Care Provider] - 1-2 days Time of Disposition: 21:42
[2023-09-02 18:07] VITALS: RESP 16
[2023-09-02 18:13] LABS: Basophils # (A) 0.1 k/uL (0-0.2); Basophils % (A) 1 %; Eosinophils # (A) 0.3 k/uL (0-0.7); Eosinophils % (A) 3 %; HCT 46.7 % (34.0-46.0); HGB 14.4 gm/dL (11.4-16.0); Hypochromasia Slight; Lymphocytes # (A) 2.1 k/uL (1.0-4.8); Lymphocytes % (A) 19 %; MCH 30.8 pg (25.0-35.0); MCHC 30.9 g/dL (31.0-37.0); MCV 99.6 fL (80.0-100.0); Mean Platelet Volume 7.3; Monocytes # (A) 0.5 k/uL (0-1.0); Monocytes % (A) 5 %; Neutrophils % (A) 72 %; Platelet Count 368 k/uL (150-450); RBC 4.68 m/uL (3.80-5.40); RDW 13.9 % (11.5-15.5)
[2023-09-02 18:28] LABS: Prothrombin Time 10.8 sec (10.0-12.5)
[2023-09-02 18:29] LABS: ALT 20 U/L (4-34); AST 30 U/L (14-36); African American GFR (CKD) 66 (>60 ml/min/1.73 sqM); Albumin 3.8 g/dL (3.5-5.0); Alkaline Phosphatase 116 U/L (38-126); Anion Gap 9 mmol/L; Blood Urea Nitrogen 26 mg/dL (7-17); Calcium 9.7 mg/dL (8.4-10.2); Carbon Dioxide 28 mmol/L (22-30); Chloride 101 mmol/L (98-107); Glucose 392 mg/dL (74-99); Non-African American GFR(CKD) 57 (>60 ml/min/1.73 sqM); Potassium 4.3 mmol/L (3.5-5.1); Sodium 138 mmol/L (137-145); Total Bilirubin 0.6 mg/dL (0.2-1.3); Total Protein 7.2 g/dL (6.3-8.2)
--- NOTE | 2023-09-02 19:11 | CT ---
EXAMINATION TYPE: CT brain wo con CT DLP: 1152.6 mGycm, Automated exposure control for dose reduction was used. DATE OF EXAM: 09/02/2023 6:45 PM COMPARISON: None. CLINICAL INDICATION:Female, 73 years old with history of confusion AMS, confusion, ams TECHNIQUE: Brain: Axial CT images of the brain were obtained with coronal and sagittal reformats created and rev iewed. Contrast used: None. Oral contrast used: None. FINDINGS: Extra-axial spaces: No abnormal extra-axial fluid collections. Ventricular system: Ventricles appear dilated in proportion to the degree of cerebral atrophy. Cerebral parenchyma: No increased attenuation to suggest acute intraparenchymal hemorrhage. The gra y-white matter interface appears maintained. Moderate generalized brain atrophy. Scattered hypoatte nuating areas are seen within the cerebral white matter, nonspecific but most often seen with chronic microvascular ischemic changes; mild in degree. Cerebellum: No acute abnormality. Mass effect: No evidence of mass effect or midline shift. Intracranial vasculature: Atherosclerotic calcifications of the larger arteries near the skull base. Soft tissues: No acute or concerning abnormality. Visualized orbits: Orbital contents appear grossly intact. Calvarium/osseous structures: No evidence of calvarial fracture. Osteopenia. Paranasal sinuses and mastoid air cells: Clear. Hypoplastic frontal sinuses. MRI is more sensitive for detecting acute processes such as infarct, and may be considered if clinica lly warranted. IMPRESSION: 1. No CT evidence of an acute intracranial abnormality. 2. Atrophy and chronic microvascular ischemic white matter changes.
[2023-09-02 19:24] LABS: Partial Thromboplastin Time 21.7 sec (22.0-30.0)
--- NOTE | 2023-09-02 20:08 | CT ---
EXAMINATION TYPE: CT angio head neck DATE OF EXAM: 09/02/2023 7:06 PM COMPARISON: Same day CT head. CLINICAL INDICATION:Female, 73 years old with history of confusion AMS; PHH, confusion, ams TECHNIQUE: Axially acquired helical CT angiogram of the head and neck was obtained with contrast. Axi al images are supplemented with 3D reconstructions which were post-processed at an independent workst atcounts include [facility] beds [facility]. NASCET criteria used. Contrast used: 65 mL of Isovue 370 with IV Contrast, Oral contrast used: None. CT DLP: 742.3 mGycm, Automated exposure control for dose reduction was used. FINDINGS: CTA Neck: A 3 vessel aortic arch is shown. Atherosclerotic calcific plaque is present in the aortic arch and p roximal branch vessels without significant stenosis. Right carotid system: The common carotid is patent. At the bifurcation there is heavy calcification w hich narrows the origin of the ECA but its cause is under 50% stenosis of the distal CCA. ICA shows n o significant stenosis. Left carotid system: The common carotid is patent. Calcified plaques in the carotid bifurcation and p roximal ICA, without hemodynamically significant stenosis. ECAs patent. Vertebral arteries: Mostly calcific plaque in the proximal left vertebral artery seems to cause moder ate stenosis. Origin of the right vertebral artery appears mildly narrowed. Vertebral silhouette appe ar patent without evidence of dissection. Other: Visualized neck soft tissues show no concerning acute abnormality. Thyroid demonstrates severa l tiny hypodense nodules bilaterally. Cervical spine mild degenerative changes are present. Imaged po rtions of the lung apices show no acute infiltrate or pneumothorax. Mild scarring/senescent changes. CTA Head: There are some mild calcifications of the cavernous portions of the ICAs without significant stenosis . Supraclinoid ICAs, bifurcations, ACAs, MCAs appear normally patent. Anterior communicating artery is seen and unremarkable. The intracranial vertebral arteries enhance normally. Basilar artery is patent and unremarkable. Norm al basilar bifurcation without evidence of aneurysm. Visualized proximal peripheral edp equipment operator are patent. A small right posterior communicating artery appears present. No intracranial large vessel occlusion, hemodynamically significant stenosis, aneurysm, dissection, o r arteriovenous malformation is shown. The dural venous sinuses appear grossly patent without evidence of thrombosis. Other: Please refer to same-day CT head report.. IMPRESSION: CTA neck: Patient neck CTA. Calcific atherosclerotic plaque in the carotid bifurcation regions as described, wi th no hemodynamically significant stenosis. CTA head: Patent head CTA. No intracranial large vessel occlusion, significant stenosis, or sizable aneurysm de tected in the limits of CTA.
[2023-09-02 20:13] LABS: Glucose,Whole Blood 314 mg/dL (70-110)
[2023-09-02] MEDS: INSULIN REGULAR 100 UNIT/ML VIAL (IV) IV ONE ×2 (20:17→20:37)
[2023-09-02 21:07] LABS: Glucose,Whole Blood 275 mg/dL (70-110)
[2023-09-02 22:06] VITALS: BP 162/71; PULSE 60; TEMP 97.8
== END 2023-09-02 21:49 | disposition home or self-care (01) ==
LOC: EC 17:31
DX: R73.9 Hyperglycemia, unspecified (principal); R74.02 Elevation of levels of lactic acid dehydrogenase [LDH]; I45.10 Unspecified right bundle-branch block; I44.0 Atrioventricular block, first degree; Z88.2 Allergy status to sulfonamides; Z87.891 Personal history of nicotine dependence
CPT/HCPCS: 99285; 36415; 80053; 82009; 83605; 84484; 85025; 85610; 85730; 70496; 70450; 70498; Q9967